=== PATIENT | male | born 1955 | race Caucasian/White ===

== ENCOUNTER 2019-09-06 21:09 | Day surgery (SDC) | payer BC ==
[2019-09-06] MEDS ORDERED: Morphine 4 MG/ML Syringe IVPUSH ONE (22:02)
[2019-09-06] MEDS ORDERED: Sodium Chloride 0.9% 10 ML Syringe FLUSH PRN (22:02)
[2019-09-06] MEDS ORDERED: Sodium Chloride 0.9% 2.5 ML Syringe FLUSH PRN (22:02)
[2019-09-06] MEDS ORDERED: Ondansetron 4 MG/2 ML SDV IVPUSH ONE (22:02)
[2019-09-06] MEDS ORDERED: Sodium Chloride 0.9% 1,000 ML IV ONE (22:02)
[2019-09-06 22:55] LABS: BLOOD UREA NITROGEN,BUN 21 mg/dL (7.0-18.0); CARBON DIOXIDE,CO2 24.2 mmol/L (21.0-32.0); CHLORIDE,CL 103 mmol/L (98-107); GLUCOSE RANDOM 193 mg/dL (74-106); LIPASE 133 U/L (73-393); POTASSIUM,K 4.1 mmol/L (3.5-5.1); SODIUM,NA 138 mmol/L (136-148)
[2019-09-06] MEDS ORDERED: Iopamidol 755 MG/ML 500 ML Multipack Bottle IVPUSH ONE (23:18)
--- NOTE | 2019-09-06 23:41 | CT ---
INDICATION: Right lower quadrant pain TECHNIQUE: CT abdomen and pelvis acquired with IV contrast. 100 mL of Isovue 370 administered. COMPARISON: None available FINDINGS: Lower chest: Minor subsegmental atelectasis. Liver: Mild hepatic steatosis. Spleen: Unremarkable. Pancreas: Unremarkable. Gallbladder and bile ducts: Unremarkable. Adrenal glands: Unremarkable. Kidneys: Bilateral renal parapelvic cysts and a subcentimeter right renal cortical low-density lesion suggestive of a cyst. No ureteral dilatation. GI tract: A proximal gastric diverticulum. No bowel obstruction. A dilated fluid and debris filled appendix measuring up to 1.8 cm in diameter, with mild adjacent stranding proximally, consistent with appendicitis. Left colonic diverticulosis without diverticulitis. Vascular structures: Mild atherosclerotic changes. Lymph nodes: Few shotty subcentimeter upper abdominal lymph nodes which could be reactive in the setting of hepatic steatosis. Miscellaneous: No significant free fluid or free air. Fat containing supraumbilical and periumbilical ventral hernias and a fat containing left inguinal hernia. Pelvic Organs: Slight bladder wall prominence could be related to incomplete distention. Grossly unremarkable prostate for age. Bones: Unremarkable for age. IMPRESSION: Acute appendicitis. Hepatic steatosis. Renal cysts. Dictated by Samuel Charles MD @ 09/06/2019 11:38:52 PM Please note that all CT scans at this facility use dose modulation, iterative reconstruction, and/or weight-based dosing when appropriate to reduce radiation dose to as low as reasonably achievable. Dictated by: Samuel Charles MD @ 09/06/2019 23:39:19 (Electronically Signed)
[2019-09-07] MEDS ORDERED: Piperacillin/Tazobactam 3.375 GM in Sodium Chloride 0.9% 50 ML IV ONE ×2
--- NOTE | 2019-09-07 00:07 | EDM.PDOC ---
ED HPI GENERAL MEDICAL PROBLEM - General Chief Complaint: Abdominal Pain Stated Complaint: SEVERE PAIN ON RIGHT SIDE Time Seen by Provider: 09/06/19 21:41 Source of Information: Reports: Patient - History of Present Illness INITIAL COMMENTS - FREE TEXT/NARRATIVE: Pt with no past abdominal surgical history presents with 12 hours of gradually worsening RLQ abd pain associated with nausea. No fevers or any other symptoms. Right Lower Abdomen Pain Score (Numeric/FACES): 8 - Related Data Allergies Allergy/AdvReac Type Severity Reaction Status Date / Time No Known Allergies Allergy Verified 09/06/19 21:58 Home Meds: Home Meds Losartan/Hydrochlorothiazide [Losartan-HCTZ 100-25 MG] 1 tab PO DAILY 09/06/19 [ History] Past Medical History HEENT History: Reports: None Cardiovascular History: Reports: Hypertension Respiratory History: Reports: None Gastrointestinal History: Reports: None Genitourinary History: Reports: None Musculoskeletal History: Reports: Other (See Below) Other Musculoskeletal History: back sx x2 Neurological History: Reports: None Psychiatric History: Reports: None Endocrine/Metabolic History: Reports: Diabetes, Type II Hematologic History: Reports: None Immunologic History: Reports: None Oncologic (Cancer) History: Reports: None Dermatologic History: Reports: None - Infectious Disease History Infectious Disease History: Reports: None - Past Surgical History Head Surgeries/Procedures: Reports: None Musculoskeletal Surgical History: Reports: Knee Replacement Other Musculoskeletal Surgeries/Procedures:: bilateral Social & Family History - Tobacco Use Smoking Status *Q: Never Smoker - Recreational Drug Use Recreational Drug Use: No ED ROS GENERAL - Review of Systems Review Of Systems: See Below Constitutional: Reports: Chills, Fatigue HEENT: Reports: No Symptoms Respiratory: Reports: No Symptoms Cardiovascular: Reports: No Symptoms GI/Abdominal: Reports: Abdominal Pain, Anorexia, Nausea : Reports: No Symptoms Musculoskeletal: Reports: No Symptoms Skin: Reports: No Symptoms ED EXAM, GI/ABD - Physical Exam Exam: See Below General Appearance: Alert, No Apparent Distress Throat/Mouth: Normal Inspection Head: Atraumatic, Normocephalic Neck: Normal Inspection Respiratory/Chest: No Respiratory Distress, Lungs Clear, Normal Breath Sounds Cardiovascular: Regular Rate, Rhythm, No JVD, No Murmur GI/Abdominal Exam: Guarding, Rebound, Tender, Other (RLQ). No: Rigid Back Exam: Normal Inspection Extremities: Normal Inspection Skin Exam: Warm, Dry, Intact Course - Vital Signs Last Recorded V/S: Last Vital Signs Temp 97.4 F 09/07/19 00:11 Pulse 82 09/07/19 00:11 Resp 18 09/07/19 00:11 BP 138/78 09/07/19 00:11 Pulse Ox 96 09/07/19 00:11 - Orders/Labs/Meds Orders: Active Orders 24 hr Category Date Time Status Admission Status [Patient Status] [ADT] Stat ADT 09/07/19 00:38 Ordered CULTURE BLOOD [BC] Stat Lab 09/06/19 22:10 Stop Req CULTURE BLOOD [BC] Stat Lab 09/06/19 22:27 Received Sodium Chloride 0.9% [Saline Flush] Med 09/06/19 22:02 Active 10 ml FLUSH ASDIRECTED PRN Sodium Chloride 0.9% [Saline Flush] Med 09/06/19 22:02 Active 2.5 ml FLUSH ASDIRECTED PRN Blood Culture x2 Reflex Set [OM.PC] Stat Oth 09/06/19 22:36 Ordered Saline Lock Insert [OM.PC] Stat Ot 09/06/19 22:02 Ordered Medication Orders Sodium Chloride (Saline Flush) 10 ml FLUSH ASDIRECTED PRN PRN Reason: Keep Vein Open Last Admin: 09/06/19 22:22 Dose: 10 ml Sodium Chloride (Saline Flush) 2.5 ml FLUSH ASDIRECTED PRN PRN Reason: Keep Vein Open Last Admin: 09/06/19 22:22 Dose: 2.5 ml Labs: Laboratory Tests 09/06/19 09/06/19 09/06/19 Range/Units 22:03 22:10 22:10 WBC 16.80 H (4.0-11.0) K/uL RBC 4.80 (4.50-5.90) M/uL Hgb 15.3 (13.0-17.0) g/dL Hct 44.5 (38.0-50.0) % MCV 92.7 (80.0-98.0) fL MCH 31.9 (27.0-32.0) pg MCHC 34.4 (31.0-37.0) g/dL RDW Std Deviation 45.2 (28.0-62.0) fl RDW Coeff of Vasyl 13 (11.0-15.0) % Plt Count 296 (150-400) K/uL MPV 10.00 (7.40-12.00) fL Neut % (Auto) 82.7 H (48.0-80.0) % Lymph % (Auto) 8.4 L (16.0-40.0) % George % (Auto) 8.1 (0.0-15.0) % Eos % (Auto) 0.7 (0.0-7.0) % Baso % (Auto) 0.1 (0.0-1.5) % Neut # (Auto) 13.9 H (1.4-5.7) K/uL Lymph # (Auto) 1.4 (0.6-2.4) K/uL George # (Auto) 1.4 H (0.0-0.8) K/uL Eos # (Auto) 0.1 (0.0-0.7) K/uL Baso # (Auto) 0.0 (0.0-0.1) K/uL Nucleated RBC % 0.0 /100WBC Nucleated RBCs # 0 K/uL Lactate (0.20-2.00) mmol/L Sodium 138 (136-148) mmol/L Potassium 4.1 (3.5-5.1) mmol/L Chloride 103 (98-107) mmol/L Carbon Dioxide 24.2 (21.0-32.0) mmol/L BUN 21 H (7.0-18.0) mg/dL Creatinine 1.1 (0.8-1.3) mg/dL Est Cr Clr Drug Dosing 72.40 mL/min Estimated GFR (MDRD) > 60.0 ml/min Glucose 193 H (74-106) mg/dL Calcium 8.9 (8.5-10.1) mg/dL Total Bilirubin 0.4 (0.2-1.0) mg/dL AST 20 (15-37) IU/L ALT 35 (14-63) IU/L Alkaline Phosphatase 51 (46-116) U/L Total Protein 8.3 H (6.4-8.2) g/dL Albumin 3.8 (3.4-5.0) g/dL Globulin 4.5 H (2.6-4.0) g/dL Albumin/Globulin Ratio 0.8 L (0.9-1.6) Lipase 133 (73-393) U/L Urine Color YELLOW Urine Appearance CLEAR Urine pH 5.0 (5.0-8.0) Ur Specific [place] >= 1.030 (1.001-1.035) Urine Protein NEGATIVE (NEGATIVE) mg/dL Urine Glucose (UA) 250 H (NEGATIVE) mg/dL Urine Ketones NEGATIVE (NEGATIVE) mg/dL Urine Occult Blood TRACE-INTACT H (NEGATIVE) Urine Nitrite NEGATIVE (NEGATIVE) Urine Bilirubin NEGATIVE (NEGATIVE) Urine Urobilinogen 0.2 (<2.0) EU/dL Ur Leukocyte Esterase NEGATIVE (NEGATIVE) Urine RBC NONE SEEN (0-2/HPF) Urine WBC 0-1 (0-5/HPF) Ur Epithelial Cells RARE (NONE-FEW) Urine Bacteria RARE (NEGATIVE) Urine Mucus LIGHT (NONE-MOD) 09/06/19 Range/Units 22:27 WBC (4.0-11.0) K/uL RBC (4.50-5.90) M/uL Hgb (13.0-17.0) g/dL Hct (38.0-50.0) % MCV (80.0-98.0) fL MCH (27.0-32.0) pg MCHC (31.0-37.0) g/dL RDW Std Deviation (28.0-62.0) fl RDW Coeff of Vasyl (11.0-15.0) % Plt Count (150-400) K/uL MPV (7.40-12.00) fL Neut % (Auto) (48.0-80.0) % Lymph % (Auto) (16.0-40.0) % [place] % (Auto) (0.0-15.0) % Eos % (Auto) (0.0-7.0) % Baso % (Auto) (0.0-1.5) % Neut # (Auto) (1.4-5.7) K/uL Lymph # (Auto) (0.6-2.4) K/uL [place] # (Auto) (0.0-0.8) K/uL Eos # (Auto) (0.0-0.7) K/uL Baso # (Auto) (0.0-0.1) K/uL Nucleated RBC % /100WBC Nucleated RBCs # K/uL Lactate 1.8 (0.20-2.00) mmol/L Sodium (136-148) mmol/L Potassium (3.5-5.1) mmol/L Chloride (98-107) mmol/L Carbon Dioxide (21.0-32.0) mmol/L BUN (7.0-18.0) mg/dL Creatinine (0.8-1.3) mg/dL Est Cr Clr Drug Dosing mL/min Estimated GFR (MDRD) ml/min Glucose (74-106) mg/dL Calcium (8.5-10.1) mg/dL Total Bilirubin (0.2-1.0) mg/dL AST (15-37) IU/L ALT (14-63) IU/L Alkaline Phosphatase (46-116) U/L Total Protein (6.4-8.2) g/dL Albumin (3.4-5.0) g/dL Globulin (2.6-4.0) g/dL Albumin/Globulin Ratio (0.9-1.6) Lipase (73-393) U/L Urine Color Urine Appearance Urine pH (5.0-8.0) Ur Specific [place] (1.001-1.035) Urine Protein (NEGATIVE) mg/dL Urine Glucose (UA) (NEGATIVE) mg/dL Urine Ketones (NEGATIVE) mg/dL Urine Occult Blood (NEGATIVE) Urine Nitrite (NEGATIVE) Urine Bilirubin (NEGATIVE) Urine Urobilinogen (<2.0) EU/dL Ur Leukocyte Esterase (NEGATIVE) Urine RBC (0-2/HPF) Urine WBC (0-5/HPF) Ur Epithelial Cells (NONE-FEW) Urine Bacteria (NEGATIVE) Urine Mucus (NONE-MOD) Meds: Medications Generic Name Dose Route Start Last Admin Trade Name Freq PRN Reason Stop Dose Admin Sodium Chloride 10 ml 09/06/19 22:02 09/06/19 22:22 Saline Flush FLUSH 10 ml ASDIRECTED PRN Administration Keep Vein Open Sodium Chloride 2.5 ml 09/06/19 22:02 09/06/19 22:22 Saline Flush FLUSH 2.5 ml ASDIRECTED PRN Administration Keep Vein Open Discontinued Medications Generic Name Dose Route Start Last Admin Trade Name Freq PRN Reason Stop Dose Admin Sodium Chloride 1,000 mls @ 999 mls/hr 09/06/19 22:02 09/06/19 22:21 Normal Saline IV 09/06/19 23:02 999 mls/hr .Bolus ONE Administration Piperacillin Sod/Tazobactam 50 mls @ 100 mls/hr 09/07/19 00:00 09/07/19 00:06 Sod 3.375 gm/ Sodium Chloride IV 09/07/19 00:29 100 mls/hr ONETIME ONE Administration Iopamidol 100 ml 09/06/19 23:18 09/06/19 23:19 Isovue Multipack-370 (76%) IVPUSH 09/06/19 23:19 100 ml ONETIME ONE Administration Morphine Sulfate 4 mg 09/06/19 22:02 09/06/19 22:23 Morphine IVPUSH 09/06/19 22:03 4 mg ONETIME ONE Administration Ondansetron HCl 4 mg 09/06/19 22:02 09/06/19 22:22 Zofran IVPUSH 09/06/19 22:03 4 mg ONETIME ONE Administration - Re-Assessments/Exams Free Text/Narrative Re-Assessment/Exam: 09/07/19 00:41 WO shows acute uncomplicated appendicitis. Dr. Schneider consulted and pt admitted for Lap Appe in the am. Pt and family in agreement with plan. Departure - Departure Time of Disposition: 00:40 Disposition: Refer to Observation Clinical Impression: Appendicitis - Discharge Information *PRESCRIPTION DRUG MONITORING PROGRAM REVIEWED*: Not Applicable *COPY OF PRESCRIPTION DRUG MONITORING REPORT IN PATIENT BARBY: Not Applicable Referrals: PCP,None [Primary Care Provider] - Forms: ED Department Discharge Sepsis Event Note - Evaluation Sepsis Screening Result: No Definite Risk - Focused Exam Vital Signs: Vital Signs Temp Pulse Resp BP Pulse Ox 09/07/19 00:11 97.4 F 82 18 138/78 96 09/06/19 23:54 97.1 F 78 20 149/74 H 97 09/06/19 21:53 97.9 F 97 18 131/102 H 94 L Date Exam was Performed: 09/07/19 Time Exam was Performed: 00:39 - My Orders Last 24 Hours: My Active Orders 09/06/19 22:02 Sodium Chloride 0.9% [Saline Flush] 10 ml FLUSH ASDIRECTED PRN Sodium Chloride 0.9% [Saline Flush] 2.5 ml FLUSH ASDIRECTED PRN Saline Lock Insert [OM.PC] Stat 09/06/19 22:10 CULTURE BLOOD [BC] Stat 09/06/19 22:27 CULTURE BLOOD [BC] Stat 09/06/19 22:36 Blood Culture x2 Reflex Set [OM.PC] Stat 09/07/19 00:38 Admission Status [Patient Status] [ADT] Stat - Assessment/Plan Last 24 Hours: My Active Orders 09/06/19 22:02 Sodium Chloride 0.9% [Saline Flush] 10 ml FLUSH ASDIRECTED PRN Sodium Chloride 0.9% [Saline Flush] 2.5 ml FLUSH ASDIRECTED PRN Saline Lock Insert [OM.PC] Stat 09/06/19 22:10 CULTURE BLOOD [BC] Stat 09/06/19 22:27 CULTURE BLOOD [BC] Stat 09/06/19 22:36 Blood Culture x2 Reflex Set [OM.PC] Stat 09/07/19 00:38 Admission Status [Patient Status] [ADT] Stat
[2019-09-07] MEDS ORDERED: Ondansetron 4 MG/2 ML SDV IVPUSH PRN (00:53)
[2019-09-07] MEDS: Lactated Ringers 1,000 ML IV SCH ×3 (01:37→23:07)
[2019-09-07] MEDS: HYDROmorphone 2 MG/ML Syringe IVPUSH PRN ×3 (01:37→09:09)
[2019-09-07] MEDS: Piperacillin/Tazobactam 3.375 GM in Sodium Chloride 0.9% 50 ML IV SCH ×3 (05:37→18:03)
[2019-09-07] MEDS ORDERED: fentaNYL 100 MCG/2 ML SDV IVPUSH PRN (07:50)
--- NOTE | 2019-09-07 07:50 | PCM.PREANE ---
Preanesthetic Assessment - Anesthesia/Transfusion/Family Hx Anesthesia History: Prior Anesthesia Without Reaction Family History of Anesthesia Reaction: No Transfusion History: No Prior Transfusion(s) - Physical Assessment NPO Status Date: 09/07/19 NPO Status Time: 00:05 Vital Signs: Last Vital Signs Temp 37.2 C 09/07/19 04:48 Pulse 64 09/07/19 04:48 Resp 16 09/07/19 04:48 BP 125/63 09/07/19 04:48 Pulse Ox 94 L 09/07/19 04:48 Height: 1.8 m Weight: 121.563 kg ASA Class: 2 Mental Status: Alert & Oriented x3 Dentition: Reports: Normal Dentition Lungs: Clear to Auscultation Cardiovascular: Regular Rate - Lab Values: Laboratory Last Values WBC 16.80 K/uL (4.0-11.0) H 09/06/19 22:10 RBC 4.80 M/uL (4.50-5.90) 09/06/19 22:10 Hgb 15.3 g/dL (13.0-17.0) 09/06/19 22:10 Hct 44.5 % (38.0-50.0) 09/06/19 22:10 MCV 92.7 fL (80.0-98.0) 09/06/19 22:10 MCH 31.9 pg (27.0-32.0) 09/06/19 22:10 MCHC 34.4 g/dL (31.0-37.0) 09/06/19 22:10 RDW Std Deviation 45.2 fl (28.0-62.0) 09/06/19 22:10 RDW Coeff of Vasyl 13 % (11.0-15.0) 09/06/19 22:10 Plt Count 296 K/uL (150-400) 09/06/19 22:10 MPV 10.00 fL (7.40-12.00) 09/06/19 22:10 Neut % (Auto) 82.7 % (48.0-80.0) H 09/06/19 22:10 Lymph % (Auto) 8.4 % (16.0-40.0) L 09/06/19 22:10 [place] % (Auto) 8.1 % (0.0-15.0) 09/06/19 22:10 Eos % (Auto) 0.7 % (0.0-7.0) 09/06/19 22:10 Baso % (Auto) 0.1 % (0.0-1.5) 09/06/19 22:10 Neut # (Auto) 13.9 K/uL (1.4-5.7) H 09/06/19 22:10 Lymph # (Auto) 1.4 K/uL (0.6-2.4) 09/06/19 22:10 [place] # (Auto) 1.4 K/uL (0.0-0.8) H 09/06/19 22:10 Eos # (Auto) 0.1 K/uL (0.0-0.7) 09/06/19 22:10 Baso # (Auto) 0.0 K/uL (0.0-0.1) 09/06/19 22:10 Nucleated RBC % 0.0 /100WBC 09/06/19 22:10 Nucleated RBCs # 0 K/uL 09/06/19 22:10 Lactate 1.8 mmol/L (0.20-2.00) 09/06/19 22:27 Sodium 138 mmol/L (136-148) 09/06/19 22:10 Potassium 4.1 mmol/L (3.5-5.1) 09/06/19 22:10 Chloride 103 mmol/L (98-107) 09/06/19 22:10 Carbon Dioxide 24.2 mmol/L (21.0-32.0) 09/06/19 22:10 BUN 21 mg/dL (7.0-18.0) H 09/06/19 22:10 Creatinine 1.1 mg/dL (0.8-1.3) 09/06/19 22:10 Est Cr Clr Drug Dosing 72.40 mL/min 09/06/19 22:10 Estimated GFR (MDRD) > 60.0 ml/min 09/06/19 22:10 Glucose 193 mg/dL (74-106) H 09/06/19 22:10 Calcium 8.9 mg/dL (8.5-10.1) 09/06/19 22:10 Total Bilirubin 0.4 mg/dL (0.2-1.0) 09/06/19 22:10 AST 20 IU/L (15-37) 09/06/19 22:10 ALT 35 IU/L (14-63) 09/06/19 22:10 Alkaline Phosphatase 51 U/L (46-116) 09/06/19 22:10 Total Protein 8.3 g/dL (6.4-8.2) H 09/06/19 22:10 Albumin 3.8 g/dL (3.4-5.0) 09/06/19 22:10 Globulin 4.5 g/dL (2.6-4.0) H 09/06/19 22:10 Albumin/Globulin Ratio 0.8 (0.9-1.6) L 09/06/19 22:10 Lipase 133 U/L (73-393) 09/06/19 22:10 Urine Color YELLOW 09/06/19 22:03 Urine Appearance CLEAR 09/06/19 22:03 Urine pH 5.0 (5.0-8.0) 09/06/19 22:03 Ur Specific [place] >= 1.030 (1.001-1.035) 09/06/19 22:03 Urine Protein NEGATIVE mg/dL (NEGATIVE) 09/06/19 22:03 Urine Glucose (UA) 250 mg/dL (NEGATIVE) H 09/06/19 22:03 Urine Ketones NEGATIVE mg/dL (NEGATIVE) 09/06/19 22:03 Urine Occult Blood TRACE-INTACT (NEGATIVE) H 09/06/19 22:03 Urine Nitrite NEGATIVE (NEGATIVE) 09/06/19 22:03 Urine Bilirubin NEGATIVE (NEGATIVE) 09/06/19 22:03 Urine Urobilinogen 0.2 EU/dL (<2.0) 09/06/19 22:03 Ur Leukocyte Esterase NEGATIVE (NEGATIVE) 09/06/19 22:03 Urine RBC NONE SEEN (0-2/HPF) 09/06/19 22:03 Urine WBC 0-1 (0-5/HPF) 09/06/19 22:03 Ur Epithelial Cells RARE (NONE-FEW) 09/06/19 22:03 Urine Bacteria RARE (NEGATIVE) 09/06/19 22:03 Urine Mucus LIGHT (NONE-MOD) 09/06/19 22:03 - Allergies Allergies/Adverse Reactions: Allergies Allergy/AdvReac Type Severity Reaction Status Date / Time No Known Allergies Allergy Verified 01/24/20 02:45 - Acknowledgements Anesthesia Type Planned: General Anesthesia Pt an Appropriate Candidate for the Planned Anesthesia: Yes Alternatives and Risks of Anesthesia Discussed w Pt/Guardian: Yes Pt/Guardian Understands and Agrees with Anesthesia Plan: Yes PreAnesthesia Questionnaire HEENT History: Reports: Impaired Vision, Other (See Below) Other HEENT History: wears glasses Cardiovascular History: Reports: Hypertension Respiratory History: Reports: None Gastrointestinal History: Reports: None Genitourinary History: Reports: None Musculoskeletal History: Reports: Other (See Below) Other Musculoskeletal History: back sx x2 Neurological History: Reports: None Psychiatric History: Reports: None Endocrine/Metabolic History: Reports: Diabetes, Type II Hematologic History: Reports: None Immunologic History: Reports: None Oncologic (Cancer) History: Reports: None Dermatologic History: Reports: None - Infectious Disease History Infectious Disease History: Reports: Chicken Pox - Past Surgical History Head Surgeries/Procedures: Reports: None Musculoskeletal Surgical History: Reports: Knee Replacement Other Musculoskeletal Surgeries/Procedures:: bilateral - SUBSTANCE USE Smoking Status *Q: Never Smoker Second Hand Smoke Exposure: No Recreational Drug Use History: No - HOME MEDS Home Medications: Home Meds Losartan/Hydrochlorothiazide [Losartan-HCTZ 100-25 MG] 1 tab PO DAILY 09/06/19 [ History] - CURRENT (IN HOUSE) MEDS Current Meds: Current Medications Hydromorphone HCl (Dilaudid) 0.5 mg IVPUSH Q1H PRN PRN Reason: Pain (severe 7-10) Last Admin: 09/07/19 04:36 Dose: 0.5 mg Lactated Ringer's (Ringers, Lactated) 1,000 mls @ 125 mls/hr IV ASDIRECTED [facility] Last Admin: 09/07/19 01:37 Dose: 125 mls/hr Piperacillin Sod/Tazobactam (Sod 3.375 gm/ Sodium Chloride) 50 mls @ 100 mls/ hr IV Q6H [facility] Last Admin: 09/07/19 05:37 Dose: 100 mls/hr Ondansetron HCl (Zofran) 4 mg IVPUSH Q6H PRN PRN Reason: Nausea/Vomiting Sodium Chloride (Saline Flush) 10 ml FLUSH ASDIRECTED PRN PRN Reason: Keep Vein Open Last Admin: 09/06/19 22:22 Dose: 10 ml Sodium Chloride (Saline Flush) 2.5 ml FLUSH ASDIRECTED PRN PRN Reason: Keep Vein Open Last Admin: 09/06/19 22:22 Dose: 2.5 ml Discontinued Medications Sodium Chloride (Normal Saline) 1,000 mls @ 999 mls/hr IV .Bolus ONE Stop: 09/06/19 23:02 Last Admin: 09/06/19 22:21 Dose: 999 mls/hr Piperacillin Sod/Tazobactam (Sod 3.375 gm/ Sodium Chloride) 50 mls @ 100 mls/ hr IV ONETIME ONE Stop: 09/07/19 00:29 Last Admin: 09/07/19 00:06 Dose: 100 mls/hr Iopamidol (Isovue Multipack-370 (76%)) 100 ml IVPUSH ONETIME ONE Stop: 09/06/19 23:19 Last Admin: 09/06/19 23:19 Dose: 100 ml Morphine Sulfate (Morphine) 4 mg IVPUSH ONETIME ONE Stop: 09/06/19 22:03 Last Admin: 09/06/19 22:23 Dose: 4 mg Ondansetron HCl (Zofran) 4 mg IVPUSH ONETIME ONE Stop: 09/06/19 22:03 Last Admin: 09/06/19 22:22 Dose: 4 mg
[2019-09-07 08:13] LABS: HEMOGLOBIN A1C 6.7 % (4.5-6.2)
[2019-09-07] MEDS ORDERED: Sugammadex Sodium 200 MG/2 ML VIAL ONE (08:27)
--- NOTE | 2019-09-07 09:13 | PCM.HP.2 ---
H&P History of Present Illness - General Date of Service: 09/07/19 Admit Problem/Dx: Admission Diagnosis/Problem Admission Diagnosis/Problem Acute appendicitis Source of Information: Patient History Limitations: Reports: No Limitations - History of Present Illness Initial Comments - Free Text/Narative: Patient is a 64 year old male who presents with acute appendicitis. He developed abdominal pain yesterday. He denies nausea vomiting or fever but he did feel chills. The pain did not improve so he presented to the emergency room. He had a white count of 16,000 with a left shift. He had a CT scan which showed acute appendicitis with no evidence of perforation. Of note he also was found to have a left fat-containing inguinal hernia as well as a supraumbilical hernia and umbilical hernia. Right Lower Abdomen Pain Score (Numeric/FACES): 8 - Related Data Allergies/Adverse Reactions: Allergies Allergy/AdvReac Type Severity Reaction Status Date / Time No Known Allergies Allergy Verified 09/07/19 02:45 Home Medications: Home Meds Losartan/Hydrochlorothiazide [Losartan-HCTZ 100-25 MG] 1 tab PO DAILY 09/06/19 [ History] Past Medical History HEENT History: Reports: Impaired Vision, Other (See Below) Other HEENT History: wears glasses Cardiovascular History: Reports: Hypertension Respiratory History: Reports: None Gastrointestinal History: Reports: None Genitourinary History: Reports: None Musculoskeletal History: Reports: Other (See Below) Other Musculoskeletal History: back sx x2 Neurological History: Reports: None Psychiatric History: Reports: None Endocrine/Metabolic History: Reports: Diabetes, Type II Hematologic History: Reports: None Immunologic History: Reports: None Oncologic (Cancer) History: Reports: None Dermatologic History: Reports: None - Infectious Disease History Infectious Disease History: Reports: Chicken Pox - Past Surgical History Head Surgeries/Procedures: Reports: None Musculoskeletal Surgical History: Reports: Knee Replacement Other Musculoskeletal Surgeries/Procedures:: bilateral Social & Family History - Family History Family Medical History: Noncontributory - Tobacco Use Smoking Status *Q: Never Smoker Second Hand Smoke Exposure: No - Caffeine Use Caffeine Use: Reports: None - Recreational Drug Use Recreational Drug Use: No H&P Review of Systems - Review of Systems: Review Of Systems: Comprehensive ROS is negative, except as noted in HPI. Exam - Exam Exam: See Below - Vital Signs Vital Signs: Last Vital Signs Temp 37.2 C 09/07/19 04:48 Pulse 64 09/07/19 04:48 Resp 16 09/07/19 04:48 BP 125/63 09/07/19 04:48 Pulse Ox 94 L 09/07/19 04:48 Weight: 121.563 kg - Exam General: Alert, Oriented HEENT: Conjunctiva Clear, Mucosa Moist & [place] Light, Posterior Pharynx Clear Neck: Supple, Trachea Midline Lungs: Clear to Auscultation, Normal Respiratory Effort Cardiovascular: Regular Rate, Regular Rhythm GI/Abdominal Exam: Soft, No Distention, No Mass, Tender (RLQ) Back Exam: Normal Inspection, Full Range of Motion - Patient Data Lab Results Last 24 hrs: Laboratory Results - last 24 hr 09/06/19 09/06/19 09/06/19 Range/Units 22:03 22:10 22:10 WBC 16.80 H (4.0-11.0) K/uL RBC 4.80 (4.50-5.90) M/uL Hgb 15.3 (13.0-17.0) g/dL Hct 44.5 (38.0-50.0) % MCV 92.7 (80.0-98.0) fL MCH 31.9 (27.0-32.0) pg MCHC 34.4 (31.0-37.0) g/dL RDW Std Deviation 45.2 (28.0-62.0) fl RDW Coeff of Vasyl 13 (11.0-15.0) % Plt Count 296 (150-400) K/uL MPV 10.00 (7.40-12.00) fL Neut % (Auto) 82.7 H (48.0-80.0) % Lymph % (Auto) 8.4 L (16.0-40.0) % [place] % (Auto) 8.1 (0.0-15.0) % Eos % (Auto) 0.7 (0.0-7.0) % Baso % (Auto) 0.1 (0.0-1.5) % Neut # (Auto) 13.9 H (1.4-5.7) K/uL Lymph # (Auto) 1.4 (0.6-2.4) K/uL [place] # (Auto) 1.4 H (0.0-0.8) K/uL Eos # (Auto) 0.1 (0.0-0.7) K/uL Baso # (Auto) 0.0 (0.0-0.1) K/uL Nucleated RBC % 0.0 /100WBC Nucleated RBCs # 0 K/uL Lactate (0.20-2.00) mmol/L Sodium 138 (136-148) mmol/L Potassium 4.1 (3.5-5.1) mmol/L Chloride 103 (98-107) mmol/L Carbon Dioxide 24.2 (21.0-32.0) mmol/L BUN 21 H (7.0-18.0) mg/dL Creatinine 1.1 (0.8-1.3) mg/dL Est Cr Clr Drug Dosing 72.40 mL/min Estimated GFR (MDRD) > 60.0 ml/min Glucose 193 H (74-106) mg/dL Hemoglobin A1c (4.5-6.2) % Calcium 8.9 (8.5-10.1) mg/dL Total Bilirubin 0.4 (0.2-1.0) mg/dL AST 20 (15-37) IU/L ALT 35 (14-63) IU/L Alkaline Phosphatase 51 (46-116) U/L Total Protein 8.3 H (6.4-8.2) g/dL Albumin 3.8 (3.4-5.0) g/dL Globulin 4.5 H (2.6-4.0) g/dL Albumin/Globulin Ratio 0.8 L (0.9-1.6) Lipase 133 (73-393) U/L Urine Color YELLOW Urine Appearance CLEAR Urine pH 5.0 (5.0-8.0) Ur Specific [place] >= 1.030 (1.001-1.035) Urine Protein NEGATIVE (NEGATIVE) mg/dL Urine Glucose (UA) 250 H (NEGATIVE) mg/dL Urine Ketones NEGATIVE (NEGATIVE) mg/dL Urine Occult Blood TRACE-INTACT H (NEGATIVE) Urine Nitrite NEGATIVE (NEGATIVE) Urine Bilirubin NEGATIVE (NEGATIVE) Urine Urobilinogen 0.2 (<2.0) EU/dL Ur Leukocyte Esterase NEGATIVE (NEGATIVE) Urine RBC NONE SEEN (0-2/HPF) Urine WBC 0-1 (0-5/HPF) Ur Epithelial Cells RARE (NONE-FEW) Urine Bacteria RARE (NEGATIVE) Urine Mucus LIGHT (NONE-MOD) 09/06/19 09/06/19 Range/Units 22:10 22:27 WBC (4.0-11.0) K/uL RBC (4.50-5.90) M/uL Hgb (13.0-17.0) g/dL Hct (38.0-50.0) % MCV (80.0-98.0) fL MCH (27.0-32.0) pg MCHC (31.0-37.0) g/dL RDW Std Deviation (28.0-62.0) fl RDW Coeff of Vasyl (11.0-15.0) % Plt Count (150-400) K/uL MPV (7.40-12.00) fL Neut % (Auto) (48.0-80.0) % Lymph % (Auto) (16.0-40.0) % [place] % (Auto) (0.0-15.0) % Eos % (Auto) (0.0-7.0) % Baso % (Auto) (0.0-1.5) % Neut # (Auto) (1.4-5.7) K/uL Lymph # (Auto) (0.6-2.4) K/uL [place] # (Auto) (0.0-0.8) K/uL Eos # (Auto) (0.0-0.7) K/uL Baso # (Auto) (0.0-0.1) K/uL Nucleated RBC % /100WBC Nucleated RBCs # K/uL Lactate 1.8 (0.20-2.00) mmol/L Sodium (136-148) mmol/L Potassium (3.5-5.1) mmol/L Chloride (98-107) mmol/L Carbon Dioxide (21.0-32.0) mmol/L BUN (7.0-18.0) mg/dL Creatinine (0.8-1.3) mg/dL Est Cr Clr Drug Dosing mL/min Estimated GFR (MDRD) ml/min Glucose (74-106) mg/dL Hemoglobin A1c 6.7 H (4.5-6.2) % Calcium (8.5-10.1) mg/dL Total Bilirubin (0.2-1.0) mg/dL AST (15-37) IU/L ALT (14-63) IU/L Alkaline Phosphatase (46-116) U/L Total Protein (6.4-8.2) g/dL Albumin (3.4-5.0) g/dL Globulin (2.6-4.0) g/dL Albumin/Globulin Ratio (0.9-1.6) Lipase (73-393) U/L Urine Color Urine Appearance Urine pH (5.0-8.0) Ur Specific [place] (1.001-1.035) Urine Protein (NEGATIVE) mg/dL Urine Glucose (UA) (NEGATIVE) mg/dL Urine Ketones (NEGATIVE) mg/dL Urine Occult Blood (NEGATIVE) Urine Nitrite (NEGATIVE) Urine Bilirubin (NEGATIVE) Urine Urobilinogen (<2.0) EU/dL Ur Leukocyte Esterase (NEGATIVE) Urine RBC (0-2/HPF) Urine WBC (0-5/HPF) Ur Epithelial Cells (NONE-FEW) Urine Bacteria (NEGATIVE) Urine Mucus (NONE-MOD) Result Diagrams: 09/06/19 22:10 09/06/19 22:10 Sepsis Event Note - Evaluation Sepsis Screening Result: No Definite Risk - Focused Exam Vital Signs: Vital Signs Temp Pulse Resp BP Pulse Ox 09/07/19 04:48 37.2 C 64 16 125/63 94 L 09/07/19 01:15 36.1 C 82 18 137/73 96 09/07/19 00:11 36.3 C 82 18 138/78 96 09/06/19 23:54 36.2 C 78 20 149/74 H 97 09/06/19 21:53 36.6 C 97 18 131/102 H 94 L Date Exam was Performed: 09/07/19 Time Exam was Performed: 09:08 - Problem List (1) Appendicitis SNOMED Code(s): 61037699 ICD Code: K37 - UNSPECIFIED APPENDICITIS Status: Acute Current Visit: Yes Problem List Initiated/Reviewed/Updated: Yes Orders Last 24hrs: Active Orders 24 hr Category Date Time Status Admission Status [Patient Status] [ADT] Stat ADT 09/07/19 00:38 Active Antiembolic Devices [RC] PER UNIT ROUTINE Care 09/07/19 00:56 Active Nothing Per Oral Diet [DIET] Diet 09/07/19 Breakfast Active CULTURE BLOOD [BC] Stat Lab 09/06/19 22:10 Stop Req CULTURE BLOOD [BC] Stat Lab 09/06/19 22:27 Received HYDROmorphone [Dilaudid] Med 09/07/19 00:53 Active 0.5 mg IVPUSH Q1H PRN Lactated Ringers [Ringers, Lactated] 1,000 ml Med 09/07/19 01:00 Active IV ASDIRECTED Ondansetron [Zofran] Med 09/07/19 00:53 Active 4 mg IVPUSH Q6H PRN Piperacillin/Tazobactam [Piperacil-Tazobact] 3.375 gm Med 09/07/19 06:00 Active Sodium Chloride 0.9% [Normal Saline] 50 ml IV Q6H Sodium Chloride 0.9% [Saline Flush] Med 09/06/19 22:02 Active 10 ml FLUSH ASDIRECTED PRN Sodium Chloride 0.9% [Saline Flush] Med 09/06/19 22:02 Active 2.5 ml FLUSH ASDIRECTED PRN fentaNYL [Sublimaze] Med 09/07/19 07:50 Active 50 mcg IVPUSH Q5M PRN Blood Culture x2 Reflex Set [OM.PC] Stat Oth 09/06/19 22:36 Ordered SCD [Sequential Compression Device] [OM.PC] Routine Oth 09/07/19 00:55 Ordered Saline Lock Insert [OM.PC] Stat Oth 09/06/19 22:02 Ordered Code Status [Resuscitation Status] Routine Resus Stat 09/07/19 04:19 Ordered Medication Orders Fentanyl (Sublimaze) 50 mcg IVPUSH Q5M PRN PRN Reason: Pain Hydromorphone HCl (Dilaudid) 0.5 mg IVPUSH Q1H PRN PRN Reason: Pain (severe 7-10) Last Admin: 09/07/19 04:36 Dose: 0.5 mg Admin: 09/07/19 01:37 Dose: 0.5 mg Lactated Ringer's (Ringers, Lactated) 1,000 mls @ 125 mls/hr IV ASDIRECTED ASHLYN Last Admin: 09/07/19 01:37 Dose: 125 mls/hr Piperacillin Sod/Tazobactam (Sod 3.375 gm/ Sodium Chloride) 50 mls @ 100 mls/ hr IV Q6H [facility] Last Admin: 09/07/19 05:37 Dose: 100 mls/hr Ondansetron HCl (Zofran) 4 mg IVPUSH Q6H PRN PRN Reason: Nausea/Vomiting Sodium Chloride (Saline Flush) 10 ml FLUSH ASDIRECTED PRN PRN Reason: Keep Vein Open Last Admin: 09/06/19 22:22 Dose: 10 ml Sodium Chloride (Saline Flush) 2.5 ml FLUSH ASDIRECTED PRN PRN Reason: Keep Vein Open Last Admin: 09/06/19 22:22 Dose: 2.5 ml Assessment/Plan Comment:: Patient is a 64-year-old male with acute appendicitis. We discussed the pathophysiology of acute appendicitis. The treatment is an appendectomy. I will attempt it laparoscopically but should I be unable to perform it safely understands that we will convert to open. I explained the procedure, expected preoperative course, and risks including bleeding infection or damage to surrounding structures. He verbalized understanding and wishes to proceed. - Mortality Measure Prognosis:: Good
[2019-09-07] MEDS ORDERED: Lidocaine 2% 5 ML SDV ONE (09:46)
[2019-09-07] MEDS ORDERED: Ondansetron 4 MG/2 ML SDV ONE (09:46)
[2019-09-07] MEDS ORDERED: Rocuronium 100 MG/10 ML Syringe ONE (09:46)
[2019-09-07] MEDS ORDERED: Ketorolac 30 MG/ML SDV ONE (09:46)
[2019-09-07] MEDS ORDERED: Glycopyrrolate 0.2 MG/ML SDV ONE (09:46)
[2019-09-07] MEDS ORDERED: Midazolam 1 MG/ML 2 ML SDV ONE (09:47)
[2019-09-07] MEDS ORDERED: fentaNYL 250 MCG/5 ML SDV ONE (09:47)
[2019-09-07] MEDS ORDERED: Propofol 200 MG/20 ML SDV ONE (09:48)
[2019-09-07] MEDS ORDERED: Bupivacaine 0.5% 10 ML SDV ONE (10:35)
[2019-09-07] MEDS ORDERED: Sodium Chloride 0.9% 10 ML Syringe FLUSH PRN (13:05)
[2019-09-07] MEDS ORDERED: Promethazine 25 MG/ML SDV IM PRN (13:05)
[2019-09-07] MEDS ORDERED: Sodium Chloride 0.9% 10 ML SDV IV PRN (13:05)
[2019-09-07] MEDS ORDERED: Sodium Chloride 0.9% 2.5 ML Syringe FLUSH PRN (13:05)
--- NOTE | 2019-09-07 13:05 | PCM.OPNOTE ---
- General Post-Op/Procedure Note Date of Surgery/Procedure: 09/07/19 Operative Procedure(s): Laparoscopic appendectomy Findings: Grossly enlarged and dilated appendix consistent with acute appendicitis. No evidence of perforation. Pre Op Diagnosis: appendicitis Post-Op Diagnosis: same Anesthesia Technique: General ET Tube Primary Surgeon: Almaz Schneider Fluid Replacement, Intraop: 1,200 Output, Urine Amount: 300 EBL in mLs: 25 Condition: Fair Free Text/Narrative:: Intake & Output 09/06/19 09/07/19 09/07/19 22:59 06:59 14:59 Intake Total 0 335 Output Total 200 Balance -200 335
--- NOTE | 2019-09-07 14:14 | PCM.POSTAN ---
POST ANESTHESIA ASSESSMENT - MENTAL STATUS Mental Status: Alert, Oriented - VITAL SIGNS Vital Signs: Last Vital Signs Temp 37.9 C 09/07/19 13:02 Pulse 66 09/07/19 13:36 Resp 15 09/07/19 13:36 BP 115/60 09/07/19 13:36 Pulse Ox 93 L 09/07/19 13:36 - RESPIRATORY Respiratory Status: Respiratory Rate WNL, Airway Patent, O2 Saturation Stable - CARDIOVASCULAR CV Status: Pulse Rate WNL, Blood Pressure Stable - GASTROINTESTINAL GI Status: No Symptoms - PAIN Free Text/Narrative:: No anesthesia problems - POST OP HYDRATION Hydration Status: Adequate & Stable
--- NOTE | 2019-09-07 14:48 | OR ---
SURGEON: ALMAZ SCHNEIDER MD DATE OF PROCEDURE: 09/07/2019 PREOPERATIVE DIAGNOSIS: Acute appendicitis. POSTOPERATIVE DIAGNOSIS: Acute appendicitis. PROCEDURE PERFORMED: Laparoscopic appendectomy. PRIMARY SURGEON: Almaz Schneider MD. ANESTHESIA: General endotracheal anesthesia. FLUIDS: 1200 mL of crystalloid. ESTIMATED BLOOD LOSS: 25 mL. URINE OUTPUT: 300 mL. FINDINGS: Grossly inflamed and dilated appendix with no signs of perforation. COMPLICATIONS: None. INDICATIONS: The patient is a 64-year-old male who presents with a 1 day history of abdominal pain. Workup in the emergency room revealed acute appendicitis. I explained the need for an appendectomy. I consented him for a laparoscopic, possible open, appendectomy. I explained the procedure; expected perioperative course; and risks including bleeding, infection, or damage to surrounding structures. The patient verbalized understanding and wishes to proceed. PROCEDURE IN DETAIL: The patient was brought into the OR and placed on the OR table in supine position. A time-out was completed verifying the patient's name, age, date of , allergies, and procedure to be performed. General endotracheal anesthesia was induced. The left arm was tucked at the patient's side and a Keane catheter placed. The abdomen was prepped in usual standard fashion. I anesthetized an area 2 fingerbreadths below the right subcostal margin in the midclavicular line with 0.5% Marcaine plain. An 11 blade was used to make 1 cm incision in this area. A 5 mm optical trocar was used to gain entry into the abdomen in the left upper quadrant under direct visualization. The abdomen was insufflated and a 5 mm 30-degree scope was inserted. I inspected the area underneath my initial trocar placement. No damage to surrounding structures was noted. A 5 mm trocar was inserted just left and lateral to the umbilicus. The patient was noted to have a fat-containing supraumbilical hernia. Care was taken to maneuver around this tissue. I turned my attention to the left lower quadrant. He was noted to have a fat-containing inguinal hernia as well. A 12 mm trocar was placed along the infraumbilical midline under direct visualization. The patient was placed into Trendelenburg position and airplaned slightly to the left. I turned my attention to the right lower quadrant. The patient had an area of thickened fat. Around this area was inflamed-appearing small bowel. Using endoscopic Kittner's, I peeled back this inflammatory rind and discovered the tip of the appendix. I continued to peel back the small intestine off the body of the appendix all the way up to the base of the cecum. The cecum was identified by the tenia. Once all of the surrounding tissue was freed away from the appendix, I used a Harmonic scalpel device to carefully take down the appendiceal mesentery in distal to proximal fashion. Once the base of the appendix was completely cleared, I attempted to pass an endoscopic stapling device through the 12 mm port at the infraumbilical site. Unfortunately due to the patient's anatomy, I was unable to safely place the stapler across the appendix. Instead, I converted my 5 mm periumbilical trocar to a 12 mm trocar. This then gave me a different angle, and I was able to then safely place the endoscopic stapling device across the base of the appendix. I stapled and transected across the base of the appendix. The appendix was placed in an Endo Catch device and removed through one of the 12 mm ports. I then reinspected my operative field. It was hemostatic with no evidence of purulence. The appendix itself did not appear to be perforated. I irrigated the right lower quadrant with normal saline and suctioned it out. I then closed my 12 mm trocars under direct visualization using a Jono-Shanti device and a 0 Vicryl suture. The abdomen was allowed to desufflate and the 5 mm trocar was removed as well. The subcutaneous fat layer at all 3 sites was closed with interrupted 3-0 Vicryl suture. The skin was closed with running 4-0 Monocryl sutures. Steri-Strips and sterile dressings were applied. The patient tolerated the procedure well and was transferred to PACU in stable condition. All counts were complete and correct at the end of the case. ALBERTINA / FABIAN /[id number]
[2019-09-07] MEDS: Acetaminophen/HYDROcodone 325-5 MG Tab PO PRN ×2 (16:58→20:30)
--- NOTE | 2019-09-07 18:35 | PCM.SURGPN ---
- General Info Date of Service: 09/07/19 Date of Surgery/Procedure: 09/07/19 POD#: 0 Functional Status: Reports: Pain Controlled, Other (Patient is feeling sore along his left side. Has not tried to get up or eat yet. ). Denies: Ambulating - Review of Systems General: Reports: No Symptoms Pulmonary: Reports: No Symptoms Cardiovascular: Reports: No Symptoms Gastrointestinal: Reports: Abdominal Pain (along incisions) - Patient Data Vitals - Most Recent: Last Vital Signs Temp 36.6 C 09/07/19 15:00 Pulse 65 09/07/19 15:30 Resp 14 09/07/19 15:30 BP 117/56 L 09/07/19 15:30 Pulse Ox 94 L 09/07/19 15:30 Weight - Most Recent: 121.563 kg I&O - Last 24 Hours: Intake & Output 09/07/19 09/07/19 09/07/19 06:59 14:59 22:59 Intake Total 0 2985 Output Total 200 600 Balance -200 2385 Lab Results Last 24 Hrs: Laboratory Results - last 24 hr 09/06/19 09/06/19 09/06/19 Range/Units 22:03 22:10 22:10 WBC 16.80 H (4.0-11.0) K/uL RBC 4.80 (4.50-5.90) M/uL Hgb 15.3 (13.0-17.0) g/dL Hct 44.5 (38.0-50.0) % MCV 92.7 (80.0-98.0) fL MCH 31.9 (27.0-32.0) pg MCHC 34.4 (31.0-37.0) g/dL RDW Std Deviation 45.2 (28.0-62.0) fl RDW Coeff of Vasyl 13 (11.0-15.0) % Plt Count 296 (150-400) K/uL MPV 10.00 (7.40-12.00) fL Neut % (Auto) 82.7 H (48.0-80.0) % Lymph % (Auto) 8.4 L (16.0-40.0) % [place] % (Auto) 8.1 (0.0-15.0) % Eos % (Auto) 0.7 (0.0-7.0) % Baso % (Auto) 0.1 (0.0-1.5) % Neut # (Auto) 13.9 H (1.4-5.7) K/uL Lymph # (Auto) 1.4 (0.6-2.4) K/uL [place] # (Auto) 1.4 H (0.0-0.8) K/uL Eos # (Auto) 0.1 (0.0-0.7) K/uL Baso # (Auto) 0.0 (0.0-0.1) K/uL Nucleated RBC % 0.0 /100WBC Nucleated RBCs # 0 K/uL Lactate (0.20-2.00) mmol/L Sodium 138 (136-148) mmol/L Potassium 4.1 (3.5-5.1) mmol/L Chloride 103 (98-107) mmol/L Carbon Dioxide 24.2 (21.0-32.0) mmol/L BUN 21 H (7.0-18.0) mg/dL Creatinine 1.1 (0.8-1.3) mg/dL Est Cr Clr Drug Dosing 72.40 mL/min Estimated GFR (MDRD) > 60.0 ml/min Glucose 193 H (74-106) mg/dL Hemoglobin A1c (4.5-6.2) % Calcium 8.9 (8.5-10.1) mg/dL Total Bilirubin 0.4 (0.2-1.0) mg/dL AST 20 (15-37) IU/L ALT 35 (14-63) IU/L Alkaline Phosphatase 51 (46-116) U/L Total Protein 8.3 H (6.4-8.2) g/dL Albumin 3.8 (3.4-5.0) g/dL Globulin 4.5 H (2.6-4.0) g/dL Albumin/Globulin Ratio 0.8 L (0.9-1.6) Lipase 133 (73-393) U/L Urine Color YELLOW Urine Appearance CLEAR Urine pH 5.0 (5.0-8.0) Ur Specific [place] >= 1.030 (1.001-1.035) Urine Protein NEGATIVE (NEGATIVE) mg/dL Urine Glucose (UA) 250 H (NEGATIVE) mg/dL Urine Ketones NEGATIVE (NEGATIVE) mg/dL Urine Occult Blood TRACE-INTACT H (NEGATIVE) Urine Nitrite NEGATIVE (NEGATIVE) Urine Bilirubin NEGATIVE (NEGATIVE) Urine Urobilinogen 0.2 (<2.0) EU/dL Ur Leukocyte Esterase NEGATIVE (NEGATIVE) Urine RBC NONE SEEN (0-2/HPF) Urine WBC 0-1 (0-5/HPF) Ur Epithelial Cells RARE (NONE-FEW) Urine Bacteria RARE (NEGATIVE) Urine Mucus LIGHT (NONE-MOD) 09/06/19 09/06/19 Range/Units 22:10 22:27 WBC (4.0-11.0) K/uL RBC (4.50-5.90) M/uL Hgb (13.0-17.0) g/dL Hct (38.0-50.0) % MCV (80.0-98.0) fL MCH (27.0-32.0) pg MCHC (31.0-37.0) g/dL RDW Std Deviation (28.0-62.0) fl RDW Coeff of Vasyl (11.0-15.0) % Plt Count (150-400) K/uL MPV (7.40-12.00) fL Neut % (Auto) (48.0-80.0) % Lymph % (Auto) (16.0-40.0) % [place] % (Auto) (0.0-15.0) % Eos % (Auto) (0.0-7.0) % Baso % (Auto) (0.0-1.5) % Neut # (Auto) (1.4-5.7) K/uL Lymph # (Auto) (0.6-2.4) K/uL [place] # (Auto) (0.0-0.8) K/uL Eos # (Auto) (0.0-0.7) K/uL Baso # (Auto) (0.0-0.1) K/uL Nucleated RBC % /100WBC Nucleated RBCs # K/uL Lactate 1.8 (0.20-2.00) mmol/L Sodium (136-148) mmol/L Potassium (3.5-5.1) mmol/L Chloride (98-107) mmol/L Carbon Dioxide (21.0-32.0) mmol/L BUN (7.0-18.0) mg/dL Creatinine (0.8-1.3) mg/dL Est Cr Clr Drug Dosing mL/min Estimated GFR (MDRD) ml/min Glucose (74-106) mg/dL Hemoglobin A1c 6.7 H (4.5-6.2) % Calcium (8.5-10.1) mg/dL Total Bilirubin (0.2-1.0) mg/dL AST (15-37) IU/L ALT (14-63) IU/L Alkaline Phosphatase (46-116) U/L Total Protein (6.4-8.2) g/dL Albumin (3.4-5.0) g/dL Globulin (2.6-4.0) g/dL Albumin/Globulin Ratio (0.9-1.6) Lipase (73-393) U/L Urine Color Urine Appearance Urine pH (5.0-8.0) Ur Specific [place] (1.001-1.035) Urine Protein (NEGATIVE) mg/dL Urine Glucose (UA) (NEGATIVE) mg/dL Urine Ketones (NEGATIVE) mg/dL Urine Occult Blood (NEGATIVE) Urine Nitrite (NEGATIVE) Urine Bilirubin (NEGATIVE) Urine Urobilinogen (<2.0) EU/dL Ur Leukocyte Esterase (NEGATIVE) Urine RBC (0-2/HPF) Urine WBC (0-5/HPF) Ur Epithelial Cells (NONE-FEW) Urine Bacteria (NEGATIVE) Urine Mucus (NONE-MOD) Med Orders - Current: Current Medications Hydrocodone Bitart/Acetaminophen ([place] 325-5 Mg) 2 tab PO Q4H PRN PRN Reason: Pain (moderate 4-6) Last Admin: 09/07/19 16:58 Dose: 2 tab Fentanyl (Sublimaze) 50 mcg IVPUSH Q5M PRN PRN Reason: Pain Hydromorphone HCl (Dilaudid) 0.5 mg IVPUSH Q1H PRN PRN Reason: Pain (severe 7-10) Last Admin: 09/07/19 09:09 Dose: 0.5 mg Lactated Ringer's (Ringers, Lactated) 1,000 mls @ 125 mls/hr IV ASDIRECTED [facility] Last Admin: 09/07/19 10:32 Dose: 125 mls/hr Piperacillin Sod/Tazobactam (Sod 3.375 gm/ Sodium Chloride) 50 mls @ 100 mls/ hr IV Q6H [facility] Last Admin: 09/07/19 18:03 Dose: 100 mls/hr Ondansetron HCl (Zofran) 4 mg IVPUSH Q6H PRN PRN Reason: Nausea/Vomiting Polyethylene Glycol (Miralax) 17 gm PO DAILY [facility] Promethazine HCl (Phenergan) 12.5 mg IM Q6H PRN PRN Reason: Nausea Sodium Chloride (Saline Flush) 10 ml FLUSH ASDIRECTED PRN PRN Reason: Keep Vein Open Last Admin: 09/06/19 22:22 Dose: 10 ml Sodium Chloride (Saline Flush) 2.5 ml FLUSH ASDIRECTED PRN PRN Reason: Keep Vein Open Last Admin: 09/06/19 22:22 Dose: 2.5 ml Sodium Chloride (Saline Flush) 10 ml FLUSH ASDIRECTED PRN PRN Reason: Keep Vein Open Sodium Chloride (Saline Flush) 2.5 ml FLUSH ASDIRECTED PRN PRN Reason: Keep Vein Open Sodium Chloride (Normal Saline) 10 ml IV ASDIRECTED PRN PRN Reason: IV Use Discontinued Medications Bupivacaine HCl (Sensorcaine-Mpf 0.5%) Confirm Administered Dose 20 ml .ROUTE .STK-MED ONE Stop: 09/07/19 10:36 Fentanyl (Sublimaze) Confirm Administered Dose 250 mcg .ROUTE .STK-MED ONE Stop: 09/07/19 09:48 Glycopyrrolate (Robinul) Confirm Administered Dose 0.2 mg .ROUTE .STK-MED ONE Stop: 09/07/19 09:47 Sodium Chloride (Normal Saline) 1,000 mls @ 999 mls/hr IV .Bolus ONE Stop: 09/06/19 23:02 Last Admin: 09/06/19 22:21 Dose: 999 mls/hr Piperacillin Sod/Tazobactam (Sod 3.375 gm/ Sodium Chloride) 50 mls @ 100 mls/ hr IV ONETIME ONE Stop: 09/07/19 00:29 Last Admin: 09/07/19 00:06 Dose: 100 mls/hr Iopamidol (Isovue Multipack-370 (76%)) 100 ml IVPUSH ONETIME ONE Stop: 09/06/19 23:19 Last Admin: 09/06/19 23:19 Dose: 100 ml Ketorolac Tromethamine (Toradol) Confirm Administered Dose 30 mg .ROUTE .STK- MED ONE Stop: 09/07/19 09:47 Lidocaine (Xylocaine-Mpf 2%) Confirm Administered Dose 5 ml .ROUTE .STK-MED ONE Stop: 09/07/19 09:47 Midazolam HCl (Versed 1 Mg/Ml) Confirm Administered Dose 2 mg .ROUTE .STK-MED ONE Stop: 09/07/19 09:48 Morphine Sulfate (Morphine) 4 mg IVPUSH ONETIME ONE Stop: 09/06/19 22:03 Last Admin: 09/06/19 22:23 Dose: 4 mg Ondansetron HCl (Zofran) 4 mg IVPUSH ONETIME ONE Stop: 09/06/19 22:03 Last Admin: 09/06/19 22:22 Dose: 4 mg Ondansetron HCl (Zofran) Confirm Administered Dose 4 mg .ROUTE .STK-MED ONE Stop: 09/07/19 09:47 Propofol (Diprivan 20 Ml) Confirm Administered Dose 200 mg .ROUTE .STK-MED ONE Stop: 09/07/19 09:49 Rocuronium [place] (Zemuron) Confirm Administered Dose 100 mg .ROUTE .STK-MED ONE Stop: 09/07/19 09:47 Sugammadex Sodium (Bridion) Confirm Administered Dose 200 mg .ROUTE .STK-MED ONE Stop: 09/07/19 08:28 - Exam Wound/Incisions: Healing Well, Dressing Dry and Intact General: Alert, Oriented HEENT: Pupils Equal, Pupils Reactive Lungs: Normal Respiratory Effort Cardiovascular: Regular Rate GI/Abdominal Exam: Soft, Non-Tender, No Distention, No Mass Skin: Warm, Dry, Intact Psy/Mental Status: Alert, Normal Affect Sepsis Event Note - Evaluation Sepsis Screening Result: No Definite Risk - Focused Exam Vital Signs: Vital Signs Temp Pulse Resp BP Pulse Ox 09/07/19 15:30 65 14 117/56 L 94 L 09/07/19 15:00 36.6 C 62 14 110/59 L 95 09/07/19 14:45 60 14 113/56 L 95 09/07/19 14:30 62 14 110/59 L 94 L 09/07/19 14:15 36.6 C 62 12 116/58 L 92 L 09/07/19 14:00 36.6 C 65 12 127/62 95 09/07/19 13:36 66 15 115/60 93 L 09/07/19 13:31 71 15 123/63 93 L 09/07/19 13:27 63 13 111/62 92 L 09/07/19 13:22 67 15 120/62 99 09/07/19 13:17 76 14 116/63 98 09/07/19 13:12 58 L 13 109/58 L 95 09/07/19 13:07 59 L 11 L 105/66 95 09/07/19 13:02 37.9 C 65 16 131/68 95 09/07/19 08:00 36.8 C 18 135/70 94 L Date Exam was Performed: 09/07/19 Time Exam was Performed: 18:32 - Problem List & Annotations (1) Appendicitis SNOMED Code(s): 95847108 Code(s): K37 - UNSPECIFIED APPENDICITIS Status: Acute Current Visit: Yes - Problem List Review Problem List Initiated/Reviewed/Updated: Yes - My Orders Last 24 Hours: Active Orders 24 hr Category Date Time Status Patient Status [ADT] Routine ADT 09/07/19 18:31 Active Antiembolic Devices [RC] PER UNIT ROUTINE Care 09/07/19 00:56 Active Intake and Output [RC] QSHIFT Care 09/07/19 13:05 Active Oxygen Therapy [RC] PRN Care 09/07/19 13:05 Active RT Incentive Spirometry [RC] Q1HWA Care 09/07/19 13:05 Active Up ad Valery [RC] ASDIRECTED Care 09/07/19 13:05 Active Vital Signs [RC] PER UNIT ROUTINE Care 09/07/19 13:05 Active Regular Diet [DIET] Diet 09/07/19 Dinner Active CULTURE BLOOD [BC] Stat Lab 09/06/19 22:10 Stop Req CULTURE BLOOD [BC] Stat Lab 09/06/19 22:27 Received Acetaminophen/HYDROcodone [[place] 325-5 MG] Med 09/07/19 13:05 Active 2 tab PO Q4H PRN HYDROmorphone [Dilaudid] Med 09/07/19 00:53 Active 0.5 mg IVPUSH Q1H PRN Lactated Ringers [Ringers, Lactated] 1,000 ml Med 09/07/19 01:00 Active IV ASDIRECTED Ondansetron [Zofran] Med 09/07/19 00:53 Active 4 mg IVPUSH Q6H PRN Piperacillin/Tazobactam [Piperacil-Tazobact] 3.375 gm Med 09/07/19 06:00 Active Sodium Chloride 0.9% [Normal Saline] 50 ml IV Q6H Promethazine [Phenergan] Med 09/07/19 13:05 Active 12.5 mg IM Q6H PRN Sodium Chloride 0.9% [Normal Saline] Med 09/07/19 13:05 Active 10 ml IV ASDIRECTED PRN Sodium Chloride 0.9% [Saline Flush] Med 09/06/19 22:02 Active 10 ml FLUSH ASDIRECTED PRN Sodium Chloride 0.9% [Saline Flush] Med 09/07/19 13:05 Active 10 ml FLUSH ASDIRECTED PRN Sodium Chloride 0.9% [Saline Flush] Med 09/06/19 22:02 Active 2.5 ml FLUSH ASDIRECTED PRN Sodium Chloride 0.9% [Saline Flush] Med 09/07/19 13:05 Active 2.5 ml FLUSH ASDIRECTED PRN fentaNYL [Sublimaze] Med 09/07/19 07:50 Active 50 mcg IVPUSH Q5M PRN polyethylene glycoL 3350 [MiraLAX] Med 09/07/19 20:00 Active 17 gm PO DAILY Blood Culture x2 Reflex Set [OM.PC] Stat Oth 09/06/19 22:36 Ordered Peripheral IV Insertion Adult [OM.PC] Urgent Oth 09/07/19 13:05 Ordered SCD [Sequential Compression Device] [OM.PC] Routine Oth 09/07/19 00:55 Ordered Saline Lock Insert [OM.PC] Stat Oth 09/06/19 22:02 Ordered Code Status [Resuscitation Status] Routine Resus Stat 09/07/19 04:19 Ordered Medication Orders Hydrocodone Bitart/Acetaminophen ([place] 325-5 Mg) 2 tab PO Q4H PRN PRN Reason: Pain (moderate 4-6) Last Admin: 09/07/19 16:58 Dose: 2 tab Fentanyl (Sublimaze) 50 mcg IVPUSH Q5M PRN PRN Reason: Pain Hydromorphone HCl (Dilaudid) 0.5 mg IVPUSH Q1H PRN PRN Reason: Pain (severe 7-10) Last Admin: 09/07/19 09:09 Dose: 0.5 mg Admin: 09/07/19 04:36 Dose: 0.5 mg Admin: 09/07/19 01:37 Dose: 0.5 mg Lactated Ringer's (Ringers, Lactated) 1,000 mls @ 125 mls/hr IV ASDIRECTED [facility] Last Admin: 09/07/19 10:32 Dose: 125 mls/hr Infusion: 09/07/19 09:37 Dose: 125 mls/hr Admin: 09/07/19 01:37 Dose: 125 mls/hr Piperacillin Sod/Tazobactam (Sod 3.375 gm/ Sodium Chloride) 50 mls @ 100 mls/ hr IV Q6H [facility] Last Admin: 09/07/19 18:03 Dose: 100 mls/hr Admin: 09/07/19 15:48 Dose: Infusion: 09/07/19 06:07 Dose: 100 mls/hr Admin: 09/07/19 05:37 Dose: 100 mls/hr Ondansetron HCl (Zofran) 4 mg IVPUSH Q6H PRN PRN Reason: Nausea/Vomiting Polyethylene Glycol (Miralax) 17 gm PO DAILY [facility] Promethazine HCl (Phenergan) 12.5 mg IM Q6H PRN PRN Reason: Nausea Sodium Chloride (Saline Flush) 10 ml FLUSH ASDIRECTED PRN PRN Reason: Keep Vein Open Last Admin: 09/06/19 22:22 Dose: 10 ml Sodium Chloride (Saline Flush) 2.5 ml FLUSH ASDIRECTED PRN PRN Reason: Keep Vein Open Last Admin: 09/06/19 22:22 Dose: 2.5 ml Sodium Chloride (Saline Flush) 10 ml FLUSH ASDIRECTED PRN PRN Reason: Keep Vein Open Sodium Chloride (Saline Flush) 2.5 ml FLUSH ASDIRECTED PRN PRN Reason: Keep Vein Open Sodium Chloride (Normal Saline) 10 ml IV ASDIRECTED PRN PRN Reason: IV Use - Plan Plan (Free Text/Narrative):: Will have patient stay the night. Regular diet as tolerated. IVF can continue until patient taking in adequate po. Then fluids can be stopped. No labs for am. Stop IV antibiotics. If no acute events overnight, pain controlled, ambulating and tolerating diet, can d/c in am.
[2019-09-07] MEDS: Polyethylene Glycol 3350 Powder 17 GM Packet PO SCH (20:29)
[2019-09-08] MEDS: Acetaminophen/HYDROcodone 325-5 MG Tab PO PRN (02:58)
[2019-09-08] MEDS: Lactated Ringers 1,000 ML IV SCH (06:09)
[2019-09-08] MEDS: Polyethylene Glycol 3350 Powder 17 GM Packet PO SCH (08:09)
--- NOTE | 2019-09-08 08:35 | PCM.DCSUM1 ---
Discharge Summary - Hospital Course Free Text/Narrative:: Patient is a 64 year old male who presented to the ER with appendicitis. He was taken to the OR for a laparoscopic appendectomy. This confirmed acute appendicitis with localized peritonitis and no evidence of perforation. He did well in the postoperative period. His diet was slowly advanced to regular and he tolerated this well. His vitals stayed stable. He is making good UOP and his pain is well controlled. Discharging home - Discharge Data Discharge Date: 09/08/19 Discharge Disposition: Home, Self-Care 01 Condition: Fair - Referral to Home Health Primary Care Physician: PCP None - Discharge Diagnosis/Problem(s) (1) Appendicitis SNOMED Code(s): 24471762 ICD Code: K37 - UNSPECIFIED APPENDICITIS Status: Acute Current Visit: Yes - Patient Summary/Data Operative Procedure(s) Performed: Laparoscopic appendectomy - Patient Instructions Diet: Regular Diet as Tolerated Activity: No Lifting Over 20 Pounds (for 4 weeks ), Rest and Relax Today Activity, Other: No work until next tuesday Driving: Do Not Drive (for one week ) Showering/Bathing: No Showering (for 2 days), No Tub Bathing/Swimming (for 2 weeks ) Wound/Incision Care: Keep Operative Site/Wound Site Clean and Dry Notify Provider of: Fever, Increased Pain, Swelling and Redness, Drainage, Nausea and/or Vomiting - Discharge Plan *PRESCRIPTION DRUG MONITORING PROGRAM REVIEWED*: Not Applicable *COPY OF PRESCRIPTION DRUG MONITORING REPORT IN PATIENT BARBY: Not Applicable Home Medications: Home Meds Losartan/Hydrochlorothiazide [Losartan-HCTZ 100-25 MG] 1 tab PO DAILY 09/06/19 [ History] Patient Handouts: Acetaminophen; Hydrocodone tablets or capsules, Laparoscopic Appendectomy, Adult, Care After, [id number] Referrals: Almaz Schneider MD [Physician] - 09/21/19 8:00 am - Discharge Summary/Plan Comment DC Time >30 min.: Yes - General Info Date of Service: 09/08/19 Functional Status: Reports: Pain Controlled, Tolerating Diet, Ambulating, Urinating - Review of Systems General: Reports: No Symptoms HEENT: Reports: No Symptoms Pulmonary: Reports: No Symptoms Cardiovascular: Reports: No Symptoms Gastrointestinal: Reports: No Symptoms Genitourinary: Reports: No Symptoms Musculoskeletal: Reports: No Symptoms Skin: Reports: No Symptoms - Patient Data Vitals - Most Recent: Last Vital Signs Temp 36.9 C 09/08/19 08:00 Pulse 69 09/08/19 08:00 Resp 16 09/08/19 08:00 BP 115/52 L 09/08/19 08:00 Pulse Ox 90 L 09/08/19 08:00 Weight - Most Recent: 121.563 kg I&O - Last 24 hours: Intake & Output 09/07/19 09/08/19 09/08/19 22:59 06:59 14:59 Intake Total 1611 Output Total 0 220 Balance 0 1391 DARIUSZ Results - Last 24 hrs: Microbiology 09/06/19 22:27 Aerobic Blood Culture - Preliminary Blood - Venous NO GROWTH AFTER 1 DAY Anaerobic Blood Culture - Preliminary NO GROWTH AFTER 1 DAY 09/06/19 22:10 Aerobic Blood Culture - Preliminary Blood NO GROWTH AFTER 1 DAY Anaerobic Blood Culture - Preliminary NO GROWTH AFTER 1 DAY Med Orders - Current: Current Medications Hydrocodone Bitart/Acetaminophen ([place] 325-5 Mg) 2 tab PO Q4H PRN PRN Reason: Pain (moderate 4-6) Last Admin: 09/08/19 02:58 Dose: 2 tab Fentanyl (Sublimaze) 50 mcg IVPUSH Q5M PRN PRN Reason: Pain Hydromorphone HCl (Dilaudid) 0.5 mg IVPUSH Q1H PRN PRN Reason: Pain (severe 7-10) Last Admin: 09/07/19 09:09 Dose: 0.5 mg Lactated Ringer's (Ringers, Lactated) 1,000 mls @ 125 mls/hr IV ASDIRECTED [facility] Last Admin: 09/08/19 06:09 Dose: 125 mls/hr Ondansetron HCl (Zofran) 4 mg IVPUSH Q6H PRN PRN Reason: Nausea/Vomiting Polyethylene Glycol (Miralax) 17 gm PO DAILY [facility] Last Admin: 09/08/19 08:09 Dose: 17 gm Promethazine HCl (Phenergan) 12.5 mg IM Q6H PRN PRN Reason: Nausea Sodium Chloride (Saline Flush) 10 ml FLUSH ASDIRECTED PRN PRN Reason: Keep Vein Open Last Admin: 09/06/19 22:22 Dose: 10 ml Sodium Chloride (Saline Flush) 2.5 ml FLUSH ASDIRECTED PRN PRN Reason: Keep Vein Open Last Admin: 09/06/19 22:22 Dose: 2.5 ml Sodium Chloride (Saline Flush) 10 ml FLUSH ASDIRECTED PRN PRN Reason: Keep Vein Open Sodium Chloride (Saline Flush) 2.5 ml FLUSH ASDIRECTED PRN PRN Reason: Keep Vein Open Sodium Chloride (Normal Saline) 10 ml IV ASDIRECTED PRN PRN Reason: IV Use Discontinued Medications Bupivacaine HCl (Sensorcaine-Mpf 0.5%) Confirm Administered Dose 20 ml .ROUTE .STK-MED ONE Stop: 09/07/19 10:36 Fentanyl (Sublimaze) Confirm Administered Dose 250 mcg .ROUTE .STK-MED ONE Stop: 09/07/19 09:48 Glycopyrrolate (Robinul) Confirm Administered Dose 0.2 mg .ROUTE .STK-MED ONE Stop: 09/07/19 09:47 Sodium Chloride (Normal Saline) 1,000 mls @ 999 mls/hr IV .Bolus ONE Stop: 09/06/19 23:02 Last Admin: 09/06/19 22:21 Dose: 999 mls/hr Piperacillin Sod/Tazobactam (Sod 3.375 gm/ Sodium Chloride) 50 mls @ 100 mls/ hr IV ONETIME ONE Stop: 09/07/19 00:29 Last Admin: 09/07/19 00:06 Dose: 100 mls/hr Piperacillin Sod/Tazobactam (Sod 3.375 gm/ Sodium Chloride) 50 mls @ 100 mls/ hr IV Q6H [facility] Last Admin: 09/07/19 18:03 Dose: 100 mls/hr Iopamidol (Isovue Multipack-370 (76%)) 100 ml IVPUSH ONETIME ONE Stop: 09/06/19 23:19 Last Admin: 09/06/19 23:19 Dose: 100 ml Ketorolac Tromethamine (Toradol) Confirm Administered Dose 30 mg .ROUTE .STK- MED ONE Stop: 09/07/19 09:47 Lidocaine (Xylocaine-Mpf 2%) Confirm Administered Dose 5 ml .ROUTE .STK-MED ONE Stop: 09/07/19 09:47 Midazolam HCl (Versed 1 Mg/Ml) Confirm Administered Dose 2 mg .ROUTE .STK-MED ONE Stop: 09/07/19 09:48 Morphine Sulfate (Morphine) 4 mg IVPUSH ONETIME ONE Stop: 09/06/19 22:03 Last Admin: 09/06/19 22:23 Dose: 4 mg Ondansetron HCl (Zofran) 4 mg IVPUSH ONETIME ONE Stop: 09/06/19 22:03 Last Admin: 09/06/19 22:22 Dose: 4 mg Ondansetron HCl (Zofran) Confirm Administered Dose 4 mg .ROUTE .STK-MED ONE Stop: 09/07/19 09:47 Propofol (Diprivan 20 Ml) Confirm Administered Dose 200 mg .ROUTE .STK-MED ONE Stop: 09/07/19 09:49 Rocuronium [place] (Zemuron) Confirm Administered Dose 100 mg .ROUTE .STK-MED ONE Stop: 09/07/19 09:47 Sugammadex Sodium (Bridion) Confirm Administered Dose 200 mg .ROUTE .STK-MED ONE Stop: 09/07/19 08:28 - Exam General: Reports: Alert, Oriented HEENT: Reports: Pupils Equal, Pupils Reactive Neck: Reports: Supple Lungs: Reports: Clear to Auscultation, Normal Respiratory Effort Cardiovascular: Reports: Regular Rate, Regular Rhythm GI/Abdominal Exam: Soft, Non-Tender, No Distention, No Mass Extremities: Normal Inspection, Normal Range of Motion
--- NOTE | 2019-09-08 09:52 | PCM48HPAN ---
Post Anesthesia Note - EVALUATION WITHIN 48HRS OF ANESTHETIC Vital Signs in Normal Range: Yes Patient Participated in Evaluation: Yes Respiratory Function Stable: Yes Airway Patent: Yes Cardiovascular Function Stable: Yes Hydration Status Stable: Yes Pain Control Satisfactory: Yes Nausea and Vomiting Control Satisfactory: Yes Mental Status Recovered: Yes Vital Signs: Last Vital Signs Temp 36.9 C 09/08/19 08:00 Pulse 69 09/08/19 08:00 Resp 16 09/08/19 08:00 BP 115/52 L 09/08/19 08:00 Pulse Ox 90 L 09/08/19 08:00 - COMMENTS/OBSERVATIONS Free Text/Narrative:: Patient sitting up in bed. No questions or concerns and no apparent problems related to anesthesia noted.
== END 2019-09-08 10:21 | disposition home or self-care (01) ==
LOC: MW.ED 21:09 → MW.SDS 09-07 00:39 → MW.MS 09-07 00:40 → MW.SDS 09-08 10:21
PROVIDERS: ATTEND Surgery
DX: K35.30 Acute appendicitis with localized peritonitis, without perforation or gangrene (principal); I10 Essential (primary) hypertension; E11.9 Type 2 diabetes mellitus without complications
CPT/HCPCS: 36415; 44970; 74177; 80053; 81001; 83036; 83605; 83690; 85025; 87040; 96361; 96365; 96375; 99285; A9270; J1170; J1885; J2001; J2250; J2270; J2405; J2543; J2704; J3010; J3490; J7030; J7050; J7120; Q9967; 00840; 88304; 99283